=== PATIENT | female | born 2000 | race African-American/Black ===

== ENCOUNTER 2024-10-09 18:38 | Emergency (ER) | payer MEDICAID, OTHER ==
[~2024-10-09] VITALS: Ht 160 cm; Wt 250.0 kg
[2024-10-09 18:39] VITALS: BP 131/65; PULSE 86; RESP 18; TEMP 98.4; O2SAT 100
== END 2024-10-09 20:24 | disposition home or self-care (01) ==
LOC: EMS 18:40
DX: H53.8 Other visual disturbances (principal); J45.909 Unspecified asthma, uncomplicated; Z77.098 Contact with and (suspected) exposure to other hazardous, chiefly nonmedicinal, chemicals
CPT/HCPCS: 99282; Z7502